=== PATIENT | male | born 1980 | race Two or more races ===

== ENCOUNTER 2022-01-12 17:18 | Emergency (ER) | payer OTHER ==
[~2022-01-12] VITALS: Ht 170.2 cm; Wt 64.9 kg
[2022-01-12] MEDS ORDERED: KETOROLAC TROMETHAMINE 30 MG/ML VIAL ONE (18:25)
[2022-01-12] MEDS ORDERED: ONDANSETRON HCL INJ 2MG/ML 2ML 2 MG/ML VIAL ONE (18:25)
[2022-01-12] MEDS ORDERED: SODIUM CHLORIDE 0.9% 1000ML 1,000 ML ONE (18:25)
[2022-01-12] MEDS ORDERED: SODIUM CHLORIDE 0.9% 1000ML 1,000 ML IV STA (18:37)
[2022-01-12] MEDS ORDERED: ONDANSETRON HCL INJ 2MG/ML 2ML 2 MG/ML VIAL IV STA (18:37)
[2022-01-12] MEDS ORDERED: KETOROLAC TROMETHAMINE 30 MG/ML VIAL IV STA (18:37)
[2022-01-12] MEDS ORDERED: IBUPROFEN400 MG PO (19:28)
[2022-01-12] MEDS ORDERED: FLOMAX0.4 MG PO (19:28)
== END 2022-01-12 18:06 | disposition home or self-care (01) ==
LOC: FSED 17:22
DX: R31.9 Hematuria, unspecified (principal); N20.0 Calculus of kidney; Q63.1 Lobulated, fused and horseshoe kidney; F17.210 Nicotine dependence, cigarettes, uncomplicated
CPT/HCPCS: 74176; 80053; 81003; 85025; 96374; 96375; 99283; J1885; J2405; J7030